=== PATIENT | male | born 1990 | race Caucasian/White ===

== ENCOUNTER 2023-07-16 21:06 | Emergency (ER) | payer SELFPAY ==
--- NOTE | 2023-07-16 21:07 | W.ED.GENAD ---
Discharge Plan Disposition Patient Disposition: Home Discharge Details Clinical Impression: Immunization, tetanus-diphtheria, Laceration of left hand Primary Care Provider: Kulwinder Zamudio ED Provider: Mega Haile Home Meds and New Rx's Prescriptions: No Action No Known Home Meds Discharge Instructions Instructions: Laceration (ED) Additional Instructions: You are seen in the emergency department for your laceration. Your stitches will need to come out in 7 to 10 days. You may return to the emergency department, go to your primary care provider, or in urgent care center to have your stitches removed. As we discussed, please return to the emergency department if you develop any fevers streaking signs of infection any foul-smelling drainage from your wound or if you have any other concerns. Please keep your wound clean. Please do not swim or soak your hand in water while your stitches are in. For your pain please take medications as follows: 1. Take acetaminophen (Tylenol), 1,000 mg (two 500 mg tabs) every 6 hours 2. Take ibuprofen (Advil), 400 mg every 6 hours. Medical Decision Making This is an overall very well-appearing mildly tachycardic but normothermic [id number] 33-year-old male with left dorsal hand laceration which will require primary closure. Patient's laceration does not appear to violate any tendons. He has intact sensation and motor function throughout his left hand. Based on laceration with razor blade I am not concerned for any retained foreign body. Will apply LET and irrigate the patient's laceration extensively prior to primary closure. We will provide return indications including any streaking signs of infection any fevers or foul-smelling drainage or any other concerns. I counseled patient on avoiding getting his laceration wet with stitches in place. I have advised PCP follow-up ED return or urgent care clinic visit for suture removal. We will update tetanus status. 10:24 PM Unfortunately LET was not available. Please see separate procedure notes for nerve block with subsequent laceration repair. Repeat heart rate normalized in the ED with oral analgesia. Patient understood return indications. HPI General Date/Time Provider Initiated Documentation: 07/16/23 21:07. HPI Narrative: This is a previously healthy right-hand dominant 33-year-old male arrived to the emergency department following a laceration he sustained just prior to arrival to the dorsal aspect of his left hand. Patient reports that he was preparing decorations for [employer] and was using a gary razor blade when he inadvertently cut his left hand. He does not know when his last tetanus was. He is not anticoagulated. He does endorse several beers tonight. He is driven by a female partner. He works as a garcia. He has not noticed any decreased function of his left thumb nor his left hand. Related Data Home Medications Medication Instructions Recorded Confirmed Unknown [No Known Home Meds] 02/22/16 07/16/23 Allergies Allergy/AdvReac Type Severity Reaction Status Date / Time No Known Allergies Allergy Unverified 07/16/23 21:15 [facility] All Active Problems (Updated 07/16/23 @ 21:15 by Mega Haile MD) Immunization, tetanus-diphtheria (Acute) Laceration of left hand (Acute) Social History Smoking/Tobacco Use Status: Former Tobacco Use Smoking risk assessment performed?: Yes Drug use: Occasionally Exam Narrative Exam Narrative: General: Well-appearing in no acute distress speaking in complete sentences. Head: Normocephalic, atraumatic. Eye: Extraocular eye movements intact. No conjunctival injection. No scleral icterus. Ear, nose, mouth, throat: Grossly normal inspection. Normal voice, handling secretions normally. Neck: Trachea midline. Cardiovascular: Well-perfused distal extremities. Respiratory: Nonlabored respiration. Gastrointestinal: Nondistended abdomen. Musculoskeletal: On the dorsal aspect of the left hand just proximal and slightly medial to the base of the thumb there is a hemostatic approximately 4 cm. Laceration violates the subcutaneous tissue but not underlying muscle belly. Sensation motor function is intact in the left hand across the radial, median, and ulnar nerve distributions. Less than 2-second capillary refill in left hand. 2+ left radial pulse. No weakness. Noted thumb function. Skin: Normal for age and race, grossly normal temperature and turgor. No acute rash. Neurologic: Alert and appropriate, no apparent acute deficits. Psychiatric: Mood and manner are appropriate. Grooming and personal hygiene are appropriate. Procedures Laceration Laceration 1: Site: hand Side (If applicable): left Size (cm): 4 Description: linear Depth: simple, single layer Local Anesthetic: Lidocaine 1% and other anesthetic (An ultrasound-guided left radial nerve block was also performed using 4 cc of 2% lidocaine without epinephrine following a timeout and using sterile technique. Please see separate procedure note.) Amount of anesthesia used (mL): 5 Pre-repair: wound explored and irrigated extensively Skin layer closed with: nylon Size (cm): 5-0 (Prolene) Number of sutures: 7 Technique: other (3 initial vertical mattress sutures were placed and were interspersed with 4 simple interrupted sutures.) Nerve Block Nerve Block 1: Time out performed: Yes Local Anesthetic: Lidocaine 1% Amount of anesthesia used (mL): 5 Side: left Nerve Blocks: radial (Nerve block performed under real-time ultrasound guidance. [place] dissection successful. Nerve block performed using a 25-gauge, 3.5 inch, spinal needle. Probe was covered in a sterile gloves.) and other (Sterile gel was used on top of the sterile glove. [place] site for nerve was cleaned prior to block using chlorhexidine wipe which was dried prior to needle entry.) Procedure Successful: Yes Patient Tolerated Procedure: well Complications: none
[2023-07-16 21:10] VITALS: BP 158/94; PULSE 101; RESP 20; TEMP 37.1; O2SAT 99
[2023-07-16 21:13] VITALS: BP 131/81; PULSE 88; RESP 18; O2SAT 96
[2023-07-16] MEDS: Acetaminophen 500 MG TAB 1000 MG PO (21:22)
[2023-07-16] MEDS: Ibuprofen 600 MG TAB PO (21:23)
== END 2023-07-16 22:37 | disposition home or self-care (01) ==
PROVIDERS: Emergency Provider Emergency Medicine; PCP Pediatrics
DX: S61.412A Laceration without foreign body of left hand, initial encounter (principal); W29.3XXA Contact with powered garden and outdoor hand tools and machinery, initial encounter
CPT/HCPCS: 12002; 90471